=== PATIENT | male | born 1965 | race Caucasian/White ===

== ENCOUNTER 2022-07-13 11:03 | Emergency (ER) | payer OTHER, SELFPAY ==
[2022-07-13 11:21] VITALS: BP 165/98; PULSE 82; RESP 18; TEMP 36.8; O2SAT 98; BMI 30.2
--- NOTE | 2022-07-13 12:02 | XR_ITS ---
WS: [id number] Left knee, 3 views, 07/13/2022 Clinical Data: injury/swelling Comparison: None. Findings: No fractures or dislocations are seen. There is minimal calcification of the medial and lateral joint space chondral cartilage.. The patella is intact. The soft tissues are unremarkable. There is minimal vascular calcification. XR/XR knee LT 3V* [id number] Impression: 1. Negative for left knee fracture. 2. Chondral cartilage calcification in the medial and lateral joint spaces. Kellgren-Eddie Classification: grade 1 (doubtful): doubtful joint space narr owing and possible osteophytic lipping
--- NOTE | 2022-07-13 12:02 | USCV_ITS ---
Bronson Matta Age: 57 Gender: M : 1965 Exam Date: 07/13/2022 12:31 Ordering Phys: Kim Key Technologist: Dionicio Mcintyre Exam Location: [facility]_ Indication: swelling/ injury PROCEDURES: Venous duplex imaging was performed in only the left lower extremity. The following venous structures were evaluated: common femoral vein, profunda vein, proximal portion of the greater saphenous vein, superficial femoral vein, and the popliteal vein. In addition, the posterior tibial and peroneal trunk were evaluated. Serial compression, augmentation maneuvers, and spectral Doppler flow evaluation were performed. FINDINGS: Normal 2-D Doppler and augmentation and compressibility throughout the lower extremity venous structures. Additional imaging through the proximal calf veins also reveals no thrombus. Limited evaluation of the greater saphenous vein is patent with no thrombus. There appears to be an area of free fluid medial to the left popliteal. CONCLUSIONS No evidence of left lower extremity DVT. Small amount of free fluid medial to the popliteal Hernandez Molina MD (Electronically Signed) Final Date: 13 Jul 2022 13:28 S
--- NOTE | 2022-07-13 12:03 | W.ED.LOWEXIN ---
HPI - Extremity Injury (Lower) General: Chief Complaint: Extremity Injury, Lower Stated Complaint: possible blood clot, sent from [facility] Time Seen by Provider: 07/13/22 11:24 Source: patient Mode of arrival: wheelchair Limitations: no limitations History of Present Illness: Patient is a 57-year-old male who presents to ED today for evaluation of a left knee injury. Patient states he was at work and states he was walking when he his leg got caught between two objects and heard a pop in his left knee . Patient states he immediately began experiencing discomfort in the knee as well as into the left calf. Patient states he was seen at an [facility] clinic where he was directed to come to the ED for further evaluation of the calf pain and swelling to rule out a DVT. States this is a workers comp injury. MD complaint: knee injury and leg injury Onset (ago): hour(s) Injury: Left: knee Place: work Severity: severe Exacerbating factors: weight bearing, movement and palpation Associated symptoms: Reports inability to bear weight Other symptoms: none Review of Systems Card: Denies: chest pain Resp: Denies: dyspnea Musc: Reports: extremity pain (L calf), extremity swelling (L calf), joint pain (L knee) and joint swelling (L knee); Denies: neck pain or back pain Neuro: Denies: numbness in extremities or sensory changes [facility] ED PFSH: Medical History Low back pain radiating to left lower extremity Social History Smoking and tobacco status: current every day smoker Physical Exam Const: COMMON NORMALS: average body habitus, patient oriented x3, no limitations, healthy appearing, alert and well nourished GENERAL APPEARANCE: cooperative and in distress (appears uncomfortable secondary to pain) ORIENTATION/CONSCIOUSNESS: Yes awake, Yes oriented to person, Yes oriented to place and Yes oriented to time Extremity: COMMON NORMALS: capillary refill normal, no clubbing, cyanosis or edema and no pedal edema GENERAL: Yes normal exam except as noted LEFT LOWER EXTREMITY: Yes knee joint and Yes lower leg OTHER: pt has diffuse tenderness throughout left knee with significant swelling/effusion present; virtually no ROM secondary to discomfort; he has swelling extending down into L calf muscle without ecchymosis; he is tender to proximal gastrocnemius Neuro: COMMON NORMALS: patient oriented x3, moves all extremities, no focal motor deficits and no sensory deficits noted SENSORIUM/ORIENTATION: Yes alert, Yes oriented to person, Yes oriented to place and Yes oriented to time Course Vital Signs: Vital signs: Vital Signs Temperature 98.3 F 07/13/22 11:21 Pulse Rate 82 07/13/22 11:21 Respiratory Rate 16 07/13/22 13:22 Blood Pressure 165/98 07/13/22 11:21 Pulse Oximetry 98 07/13/22 11:21 Oxygen Delivery Me thod Room Air 07/13/22 11:21 MDM - Extremity Injury (Lower) Medical Decision Making Based on history and physical examination I have concerns for an internal derangement to his left knee. Less likely gastrocnemius/soleus/plantaris tear or rupture. He was sent here for US imaging to rule out DVT-this was negative. Patient declines a knee immobilizer. We will place him in an Ac wrap and give him crutches. We will provide him pain medications. We will have him follow-up with Worker's Comp. for further evaluation potentially for MRI or referral to orthopedics. Lab Data Radiology Impressions Knee X-Ray 07/13/22 12:02 Impression: 1. Negative for left knee fracture. 2. Chondral cartilage calcification in the medial and lateral joint spaces. Kellgren-Eddie Classification: grade 1 (doubtful): doubtful joint space narrowing and possible osteophytic lipping Discharge Plan Discharge Patient Disposition: Home Clinical Impression: Acute internal derangement of left knee Condition: Stable Prescriptions: New hydrocodone-acetaminophen 5-325 mg tablet 1 tab PO .q 4-6 PRN (Reason: pain) Qty: 20 0RF No Action gabapentin 300 mg capsule 300 mg PO TID 30 Days Qty: 90 2RF Discharge Orders: Discharge ED (Routine); Ordered 07/13/22 Ordered By: Kim Key Referrals: Cary Medina MD [Primary Care Provider] - Patient Instructions: Opioid Safety, Pain Management, RICE Therapy Activity Restrictions/Additional Instructions: As we discussed you need to ice and elevate the extremity is much as possible. Please follow-up with Worker's Comp. as directed for further evaluation of your knee injury. Coding Level of Care Code ED Sourcing Assistant for Golden Izquierdo
--- NOTE | 2022-07-13 12:25 | PC.NURSE ---
ULTRASOUND AT BEDSIDE WITH PT.
[2022-07-13 13:22] VITALS: RESP 16
[2022-07-13] MEDS: morphine 4 mg/mL SDV 1 mL IM (13:22)
[2022-07-13 13:48] VITALS: BP 167/97; PULSE 72; RESP 16; O2SAT 98
== END 2022-07-13 13:49 | disposition home or self-care (01) ==
PROVIDERS: Emergency Provider Physician Assistant; PCP Family Medicine
DX: M23.92 Unspecified internal derangement of left knee (principal); F17.210 Nicotine dependence, cigarettes, uncomplicated
CPT/HCPCS: 73562; 93971; 96372; 99284; E0114; J2270

== ENCOUNTER 2022-08-15 11:22 | Outpatient (CLI) | payer OTHER, SELFPAY ==
--- NOTE | 2022-08-15 11:45 | MR_ITS ---
WS: [id number] MRI LEFT KNEE NONCONTRAST TECHNIQUE: Axial PD, coronal PD fat sat, coronal PD, sagittal PD, and sagittal PD fat-sat images obta ined. CLINICAL INFORMATION: pain and swelling COMPARISON: None. FINDINGS: Normal ACL and PCL. Small suprapatellar effusion. Distal quadriceps and patella tendons are intact. L obulated popliteal cyst measuring 1.5 x 1.8 x 4.4 cm AP by transverse by craniocaudal. Moderate chond romalacia patella. No subchondral edema. Normal medial and lateral patellar retinaculum. Small suprap atellar effusion. Medial and lateral collateral ligaments appear intact. Small amount of fluid and ed liliana along the medial collateral ligament. Impaction with diffuse edema involving the medial tibial plateau compatible with recent contusion. Ti ny hairline fracture involving the tibial plateau extending to the articular surface. Minimal associa elisabeth depression. Mild peripheral extrusion of the medial meniscus. Bucket-handle type tear involving the posterior hor n medial meniscus extending to the articular surface. Displaced fragment extending along the undersur face of the PCL. MR/MR knee LT wo con* [id number] IMPRESSION: 1. Normal ACL and PCL. 2. Diffuse edema involving the medial tibial plateau with a tiny hairline frac ture with minimal depression. Findings compatible with acute tibial plateau fra cture. 3. Small amount of fluid and edema along the medial collateral ligament consis tent with grade one injury. MCL appears intact. 4. Small lobulated popliteal cyst RIGHT above. 5. Complex bucket-handle type tear involving the posterior horn medial meniscu s with displaced meniscal fragment extending along the undersurface PCL. Outbridge grading: grade III: partial-thickness cartilage loss with focal ulcer ation
== END 2022-08-15 11:23 | disposition home or self-care (01) ==
LOC: RAD 11:26
PROVIDERS: Visit Provider Orthopaedic Surgery
DX: M25.462 Effusion, left knee (principal); M71.22 Synovial cyst of popliteal space [Baker], left knee; S83.212A Bucket-handle tear of medial meniscus, current injury, left knee, initial encounter; X58.XXXA Exposure to other specified factors, initial encounter
CPT/HCPCS: 73721

== ENCOUNTER 2022-08-30 11:18 | Day surgery (SDC) | payer OTHER, SELFPAY ==
[2022-08-29 08:42] VITALS: BMI 31.7
[2022-08-30] VITALS (8 sets, daily range): BP systolic 136–160; BP diastolic 85–99; PULSE 57–70; RESP 16; TEMP 36.1–36.6; O2SAT 98–99
[2022-08-30] MEDS: sodium chloride 0.9% 1,000 ML 30 ML IV (11:53)
[2022-08-30] MEDS: acetaminophen 1,000 MG/100 ML PIGGYBACK 400 MG IV (11:53)
[2022-08-30] MEDS: ketorolac 30 mg/mL INJ IVP (11:56)
--- NOTE | 2022-08-30 12:47 | W.PM.OPSUD ---
Surgery/Procedure H&P Update DATE OF PROCEDURE: August 30, 2022 DATE H&P PERFORMED: 08/17/22 CHANGES TO PREVIOUS DOCUMENTATION: None. No changes in HPI from office visit on 08/17/2022. At this point time patient has a left knee medial meniscus bucket-handle tear and at this point time understands the ins and outs of procedure risk benefits complication alternatives with surgery and ultimately this point time elects to proceed with surgical intervention of left knee diagnostic and surgical arthroscopy with partial medial meniscectomy versus repair. All questions answered patient elects to proceed with surgery. PREOP DIAGNOSIS: Left knee medial meniscus tear PRIMARY INDICATION FOR PROCEDURE: Left knee medial meniscus tear PLANNED PROCEDURE: Operation Date: 08/30/22 12:50 Proposed Procedures p Left knee diagnostic and surgical arthroscopy with partial medial meniscectomy versus repair. [id number], S83.242A,S82.142A(Left) - Wilder Avalos DO
--- NOTE | 2022-08-30 12:53 | ANES.PREANE2 ---
Pre-Anesthetic Assessment Height/Weight: Height 1.75 m Weight 97.522 kg Temp Pulse Resp BP Pulse Ox O2 Del Method 97.7 F 70 16 136/87 98 Room Air 08/30/22 11:35 08/30/22 11:35 08/30/22 11:35 08/30/22 11:35 08/30/22 11:35 08/30/22 11:35 Preop Diagnosis: Left knee medial meniscus tear Operation Date: 08/30/22 12:50 Proposed Procedures p Left knee diagnostic and surgical arthroscopy with partial medial meniscectomy versus repair. [id number], S83.242A,S82.142A(Left) - Wilder Robbie, DO Familial anesthetic complications: None Was Beta Shikha taken within 24 hours: N/A Was Clonidine taken within 24 hours: N/A Last intake: Intake Last Liquid Date 08/29/22 Last Liquid Time 22:30 Last Solid Date 08/29/22 Last Solid Time 22:30 Social Tobacco and No alcohol Exam alert, oriented x 3, clear to auscultation bilaterally and regular rate & rhythm Airway Mallampati: Class II Dentition: full Anesthetic Plan ASA status: 1 Anesthesia: General Risk of > 500 ml blood loss (7ml/kg in children): No Medications/Allergies Home Medications Medication Instructions Recorded Confirmed Last Taken Type gabapentin 300 mg capsule 300 mg PO TID 30 days #90 caps 10/26/21 08/29/22 08/29/22 Rx hydrocodone 5 mg-acetaminophen 325 1 tab PO Q6H PRN pain 5 days #20 08/23/22 08/30/22 08/30/22 06:30 Rx mg tablet tabs Allergies Allergy/AdvReac Type Severity Reaction Status Date / Time No Known Allergies Allergy Verified 08/29/22 08:41 Current Medications Generic Name Dose Route Start Last Admin Trade Name Freq PRN Reason Stop Dose Admin Sodium Chloride 1,000 mls @ 30 mls/hr 08/30/22 11:30 08/30/22 11:53 Sodium Chloride 0.9% IV 08/31/22 11:29 30 mls/hr .Q24H IRAIS Administration PFSH Anesthesia Medical History Low back pain radiating to left lower extremity Social History Smoking and tobacco status: current every day smoker Data Anesthesia Cardiac Studies: No Data to Display
[2022-08-30] MEDS: ceFAZolin 2,000 MG in sodium chloride 0.9% (plus) 50 ML 100 MG IV (13:00)
[2022-08-30] MEDS: lidocaine-epi 2% 20 mL INJ INJECTION ×2 (13:20→13:56)
--- NOTE | 2022-08-30 14:00 | SUR.OPER ---
Family Notified Of Patient's Status Via Phone.
--- NOTE | 2022-08-30 14:28 | P.OP_ITS ---
Operative Report Date of procedure: August 30, 2022 Pre-op diagnosis: Preop Diagnosis Left knee medial meniscus tear Procedure: Post-op diagnosis: Left knee medial meniscus tear Left knee lateral meniscus tearing with chondrocalcinosis Left knee extensive synovitis Left knee Medial and patellofemoral chondromalacia Procedure done: Left knee diagnostic and surgical arthroscopy partial medial meniscectomy Left knee diagnostic and surgical arthroscopy partial lateral meniscectomy Left knee diagnostic and surgical arthroscopy with extensive synovectomy of the medial lateral and patellofemoral compartments Left knee diagnostic and surgical arthroscopy with medial and patellofemoral compartment chondroplasty Surgeon: Wilder Avalos DO Estimated blood loss: 1 mL Tourniquet: No tourniquet was used IV fluids: See anesthesia record Complications: None Findings: See operative report narrative Condition: stable Disposition: same day Brief History: Patient is a 57-year-old male with left knee pain.? Patient has failed conservative treatment who has been worked up for left knee pain in the outpatient setting. MRI findings consistent with tear of the medial meniscus. talked in the office about treatment options patient would like to proceed with a left knee diagnostic and surgical arthroscopy with partial medial meniscectomy versus repair.? Patient understand the ins and outs of the procedure the risk benefits complication alternatives to treatment options.? Understanding risk of surgery they agree to proceed with surgical intervention.? Patient understand this may not provide patient with complete symptomatic relief of? pain as patient does have some underlying arthritis.? Understanding this and patient agree to proceed with surgical intervention all questions answered. Procedure: Patient seen and evaluated in the preoperative holding area.? Consent was reviewed and signed with patient.? Correct extremity was then marked.? Patient seen evaluated Anesthesia Department once cleared for surgery patient was taken back to the operative suite.? Patient was transported onto the OR table in supine position.? All bony prominences well-padded patient was appropriate secured to the bed.? Once appropriately anesthetized a nonsterile tourniquet was applied to the left thigh.? The left lower extremity was then prepped and draped in standard orthopedic fashion.? Final timeout performed.? Patient received appropriate preoperative antibiotics. Patient received local anesthetic of lidocaine with epinephrine into the joint as well as around the portal sites.? No tourniquet was inflated A standard 2 portal vertical incision diagnostic and surgical arthroscopy of the left knee was performed in standard fashion.? Small stab incision made in the inferolateral portal introduced trocar and arthroscope into the suprapatellar pouch.? Suprapatellar pouch was subsequently visualized and found to have significant synovitis but no loose bodies.? Patient had noticeable significant inflamed infrapatellar fat pad and thickening hypertrophic within the patellofemoral compartment.? ?The medial gutter was free of loose bodies I then introduced the arthroscope into the medial compartment.? Within the medial compartment I then established my inferior medial working portal utilizing spinal needle outside in technique.? Once established I then visualized our articular cartilage of the medial compartment with a valgus stress.? Patient was found to have grade 2-3 chondromalacia throughout the medial compartment.? Next I inspected the meniscus.? With an arthroscopic probe was utilized to visual? all aspects of the meniscus.? Patient was found to have a large complex tear of the medial meniscus that extended to the root. There is no repairable tissue of the meniscus at the root. As result decision was made to perform a partial medial meniscectomy. There was a radial component, horizontal component as well as another radial component near the meniscal root. This created a partial bucket-handle tear that extended from the root to the posterior horn and into the body of the medial meniscus. Patient had grade 2?3 chondromalacia of this compartment and was very tight on valgus sizing as a result I utilized a spinal needle to fenestrate the MCL to allow for slight medial opening to prevent any chondral iatrogenic injury. This allowed for appropriate visualization of the meniscus and I subsequently utilized arthroscopic shaver basket forceps to perform a partial medial meniscectomy to stable meniscal tissue. I then utilized a thermal wand to anneal the edges.? Next, I then performed a synovectomy of the medial compartment.? Given patient's chondromalacia there was areas of unstable articular cartilage and I subsequently performed a chondroplasty with arthroscopic shaver and thermal wand.? This completed medial compartment work. Next a introduced the arthroscope to the intercondylar notch.? PCL and ACL were intact. patient had significant thickening of the infrapatellar fat pad spanning into the medial and lateral compartments.? I then performed an extensive synovectomy with the arthroscopic shaver of the patellofemoral medial and lateral compartments as well as the intercondylar notch. Advance the scope into the retrocruciate space and no loose bodies were found. Next I introduced the arthroscope into the lateral compartment the lateral compartment was found to have grade 2 chondromalacia.? Lateral meniscus was found small tears throughout the white white zone and evidence of chondrocalcinosis as a result I utilized arthroscopic shaver and thermal wand basket forceps to carry out a partial lateral meniscectomy. The root was intact.? Given the grade II chondromalacia there is no unstable cartilage pieces to perform chondroplasty.? This completed my work of the lateral compartment and then performed a synovectomy of the lateral compartment.? Next of the arthroscope was placed into the lateral gutter and this was free of loose bodies.? Finally I reintroduced the arthroscope into the patellofemoral compartment.? The patellofemoral was found to have grade 2-3 chondromalacia of the patellofemoral compartment.? I utilized arthroscopic shaver and thermal wand to perform patellofemoral compartment chondroplasty. at this point I utilized arthroscopic shaver as well as thermal wand to perform extensive synovectomy of the patellofemoral compartment. This completed my work of the patellofemoral space.? I then switch my portal sites to the medial working portal.? Completed the rest of my synovectomy and the rest of my examination arthroscopy was normal. All fluid was suctioned from the joint.? ?All instruments were withdrawn.? Portal sites were closed with interrupted nylon suture.? portal sites were then covered with with Xeroform 4 x 4's ABD Curlex and Ac wrap.? Patient was then subsequently awakened from anesthesia and taken to PACU in stable condition. Disposition: Patient taken to PACU in stable condition recovering well.? Will receive appropriate discharge structure as well as pain medication postoperat ively as well as? DVT prophylaxis.we will have patient follow-up with us in the office in 2 weeks.? Patient given a knee brace given fenestration of the MCL as well as we will keep patient off of this at this time given edema along the tibial plateau. Patient understands and agrees with current plan.? All questions answered.
--- NOTE | 2022-08-30 14:28 | PM.OP2 ---
Brief Operative Note Date of procedure: 08/30/22 Pre-op diagnosis: Left knee medial meniscus tear Post-op diagnosis: same (Left knee lateral meniscus tearing with chondrocalcinosis, extensive synovitis,Medial and patellofemoral chondromalacia) Procedure Done: Procedure done: Left knee diagnostic and surgical arthroscopy partial medial meniscectomy Left knee diagnostic and surgical arthroscopy partial lateral meniscectomy Left knee diagnostic and surgical arthroscopy with extensive synovectomy of the medial lateral and patellofemoral compartments Left knee diagnostic and surgical arthroscopy with medial and patellofemoral compartment chondroplasty Surgeon: Wilder Avalos Estimated blood loss (mL): 1 Complications: none Post-op Plan: Patient taken back in stable condition recovering well. Will receive appropriate discharge instructions as well as pain medication DVT prophylaxis. Patient follow-up in the orthopedic office in 2 weeks. We will keep patient nonweightbearing at this time encourage knee range of motion given the emergency as well. Patient understands and agrees with current plan. All questions answered. Condition: stable Disposition: same day Coding Level of Care Code Acute Code for Golden Izquierdo
--- NOTE | 2022-08-30 14:28 | PM.PACU ---
PACU note Narrative: Patient taken to PACU in stable condition recovering well. Pain controlled. Dressings on in place to left lower extremity. Clean dry and intact. Patient able to wiggle toes, plantarflex and dorsiflex ankle sensations intact to light touch distally distal pulses are left lower extremity warm well perfused compartments are soft compressible. Exam: awake Disposition: discharged
--- NOTE | 2022-08-30 14:45 | ANE.PACU2 ---
Inpatient post-anesthesia follow up: Vital signs: Temperature 97.8 F Pulse Rate 60 Respiratory Rate 16 Blood Pressure 151/90 Pulse Oximetry 98 Oxygen Delivery Me thod Room Air Oxygen Flow Rate Fraction of Inspir ed Oxygen
== END 2022-08-30 15:10 | disposition home or self-care (01) ==
PROVIDERS: Visit Provider Student in an Organized Health Care Education/Training Program
PROC: (CPT 29870; principal; 2022-08-30 12:50)
DX: S83.232A Complex tear of medial meniscus, current injury, left knee, initial encounter (principal); X58.XXXA Exposure to other specified factors, initial encounter; F17.200 Nicotine dependence, unspecified, uncomplicated
CPT/HCPCS: 29876; 29880; J0131; J0690; J1100; J1170; J1885; J2250; J2405; J2704; J3010; J7030

== ENCOUNTER 2022-10-09 09:12 | Outpatient (RCR) | payer OTHER, SELFPAY | END 2022-10-19 23:59 | disposition home or self-care (01) | LOC: SPT 09:12 | PROVIDERS: Visit Provider Student in an Organized Health Care Education/Training Program | DX: Z47.89 Encounter for other orthopedic aftercare (principal) | CPT/HCPCS: 97110; 97161; G0283 ==

== ENCOUNTER 2024-08-12 13:38 | Outpatient (CLI) | payer MEDICAID, SELFPAY ==
--- NOTE | 2024-08-12 13:43 | XRR_ITS ---
PROCEDURE INFORMATION: Exam: XR Cervical Spine Exam date and time: 08/12/2024 1:54 PM Age: 59 years old Clinical indication: Cervicalgia; X3-4 months stiffness and pain in neck worsening, pain in lower back, arms and legs falling asleep, x6 years ago fell 35 feet; Additional info: M54.2 - cervicalgia TECHNIQUE: Imaging protocol: Radiologic exam of the cervical spine. Views: 2 or 3 views. COMPARISON: No relevant prior studies available. FINDINGS: Bones/joints: Large well marginated ossific bodies projecting along the posterior nuchal ligament. Multifocal degenerative changes of the cervical spine highlighted by marginal osteophytosis and disc height loss most severe at C6-C7. Soft tissues: Unremarkable. XR/XR cervical spine 3V* [id number] IMPRESSION: Degenerative changes of the cervical spine without acute abnormality.
--- NOTE | 2024-08-12 13:43 | XRR_ITS ---
PROCEDURE INFORMATION: Exam: XR Lumbosacral Spine Exam date and time: 08/12/2024 1:54 PM Age: 59 years old Clinical indication: Low back pain; X3-4 months stiffness and pain in neck worsening, pain in lower back, arms and legs falling asleep, x6 years ago fell 35 feet; Additional info: M54.50 - low back pain, unspecified TECHNIQUE: Imaging protocol: Radiologic exam of the lumbosacral spine. Views: 2 or 3 views. COMPARISON: No relevant prior studies available. FINDINGS: Bones/joints: Consecutive compression deformities of the thoracolumbar spine spanning from T11 through L3. Diffuse degenerative disc height loss. Diffuse degenerative facet arthrosis. Diffuse marginal osteophytosis. Consecutive sclerosis of the margins of the midline spinal processes suggesting Baastrup's disease. Degenerative changes of the sacroiliac joints. Soft tissues: Unremarkable. XR/XR lumbar spine 2-3V* [id number] IMPRESSION: 1. Multifocal age-indeterminate spinal compression deformities. 2. Degenerative changes throughout the thoracolumbar spine. 3. Findings suggestive of Baastrup's disease.
== END 2024-08-12 13:39 | disposition home or self-care (01) ==
LOC: RAD 13:40
PROVIDERS: PCP Family Medicine; Visit Provider Family Medicine
DX: M50.323 Other cervical disc degeneration at C6-C7 level (principal); M51.35 Other intervertebral disc degeneration, thoracolumbar region; M47.9 Spondylosis, unspecified
CPT/HCPCS: 72040; 72100

== ENCOUNTER → 2024-09-01 08:33 | Outpatient (BNVA) | payer MEDICAID, SELFPAY | PROVIDERS: PCP Family Medicine; Visit Provider Family Medicine | DX: I10 Essential (primary) hypertension (principal); R00.2 Palpitations | CPT/HCPCS: 80053; 80061; 84443; 85025 ==

== ENCOUNTER → 2024-09-02 12:50 | Outpatient (BNVA) | payer MEDICAID, SELFPAY | PROVIDERS: PCP Family Medicine; Visit Provider Orthopaedic Surgery | DX: M54.50 Low back pain, unspecified (principal); G89.29 Other chronic pain; M54.9 Dorsalgia, unspecified; M54.2 Cervicalgia | CPT/HCPCS: 72040; 72100 ==

== ENCOUNTER 2024-09-09 09:36 | Outpatient (CLI) | payer MEDICAID, SELFPAY ==
--- NOTE | 2024-09-09 10:15 | MR_ITS ---
WS: [id number] MRI LUMBAR SPINE NONCONTRAST TECHNIQUE: Sagittal T1, T2 and STIR imaging. Axial T1 and T2 imaging. CLINICAL INFORMATION: Back Pain COMPARISON: None. FINDINGS: Mild lumbar curve. No acute compression. Chronic anterior wedging at L1. Congenital spinal canal narrowing. L1-L2: Mild disc bulging. Mild facet arthropathy. Small RIGHT paracentral protrusion. Narrowing of the RIGHT subarticular recess. Mild facet arthropathy. Mild RIGHT foraminal narrowing. Mild to moderate central canal stenosis. L2-L3: Mild disc bulging with mild central canal stenosis. Mild facet arthropathy. Mild bilateral foraminal narrowing. L3-L4: Central and RIGHT paracentral disc protrusion. Moderate central canal stenosis. Impingement on the RIGHT subarticular recess. Moderate facet arthropathy. Mild RIGHT greater than LEFT foraminal narrowing. L4-L5: Slight retrolisthesis. Shallow central protrusion with a small annular tear. Moderate central canal stenosis. Impingement of traversing L5 nerve roots. Moderate facet arthropathy. Mild bilateral foraminal narrowing. L5-S1: Shallow central protrusion. Moderate central canal stenosis. Impingement of traversing S1 nerve roots bilaterally. Moderate LEFT greater than RIGHT foraminal narrowing. Visualized pelvic bony structures: Normal. Paravertebral soft tissues: Normal. MR/MR lumbar spine wo con* [id number] IMPRESSION: 1. 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 2. Moderate central canal stenosis worse L3-L4 and L4-5 described above. 3. Mild to moderate central canal stenosis L5-S1 with impingement on the trave rsing S1 nerve roots. 4. Disc bulging L1-2 impinges the RIGHT subarticular recess and traversing RIG HT L2 nerve root with mild to moderate central canal stenosis. 5. Moderate LEFT L5-S1 foraminal narrowing impinges the exiting LEFT L5 nerve root. 6. Chronic anterior wedging at L1
--- NOTE | 2024-09-09 11:00 | MR_ITS ---
WS: [id number] MRI CERVICAL SPINE NONCONTRAST TECHNIQUE: Sagittal T1, T2 and STIR imaging. Axial T2, gradient, and fiesta imaging. CLINICAL INFORMATION: Neck pain COMPARISON: None. FINDINGS: Straightening of the normal cervical lordosis. Cord signal is normal. C2-C3: Mild facet arthropathy. Uncovertebral joint hypertrophy. Mild LEFT greater than RIGHT bony foraminal narrowing. C3-C4: Disc osteophyte complex with mild central canal stenosis. Moderate facet arthropathy with uncovertebral joint hypertrophy. Moderate bilateral bony foraminal narrowing LEFT greater than RIGHT. C4-C5: Mild disc bulging with mild central canal stenosis. Moderate LEFT greater than RIGHT bony foraminal narrowing. C5-C6: Mild disc bulging with mild central canal stenosis. Slight contact of the cervical cord. Moderate RIGHT and mild LEFT bony foraminal narrowing. C6-C7: Disc osteophyte complex with endplate ridging. Spinal canal is patent. Moderate RIGHT and mild LEFT foraminal narrowing. C7-T1: Disc osteophyte ridging. Mild LEFT and no significant RIGHT foraminal narrowing. Spinal canal is patent. Visualized upper thoracic canal is patent. Visualized brain stem structures: Normal. Prevertebral soft tissues: Normal. MR/MR cervical spin wo con* [id number] IMPRESSION: 1. Straightening of the normal cervical lordosis. Mild congenital central taras l narrowing contributes to stenosis. 2. Mild central canal stenosis C3-C4 C4-C5 C5-C6. 3. Multilevel moderate bony foraminal narrowing described above worse at LEFT C2-3, bilateral C3-4, bilateral C4-5, RIGHT C5-C6, and RIGHT C6-7.
== END 2024-09-09 09:37 | disposition home or self-care (01) ==
LOC: RAD 09:37
PROVIDERS: PCP Family Medicine; Visit Provider Orthopaedic Surgery
DX: M48.02 Spinal stenosis, cervical region (principal); M48.061 Spinal stenosis, lumbar region without neurogenic claudication; M51.360 Other intervertebral disc degeneration, lumbar region with discogenic back pain only; M99.63 Osseous and subluxation stenosis of intervertebral foramina of lumbar region; M99.61 Osseous and subluxation stenosis of intervertebral foramina of cervical region; M17.12 Unilateral primary osteoarthritis, left knee; Z98.890 Other specified postprocedural states; Z01.89 Encounter for other specified special examinations
CPT/HCPCS: 72141; 72148; 73560; 73565